=== PATIENT | female | born 1990 | race Two or more races ===

== ENCOUNTER 2020-03-11 17:42 | Emergency (ER) | payer OTHER ==
[~2020-03-11] VITALS: Ht 154.9 cm; Wt 56.2 kg
[2020-03-11 22:43] VITALS: BP 143/104
[2020-03-11 23:05] LABS: Urine Bacteria MOD /hpf (None Seen); Urine Blood 1+ /uL (Negative); Urine Mucus FEW (None Seen); Urine Specific Gravity 1.022 (1.001-1.035); Urine WBC 4 /hpf (0 - 5)
[2020-03-11 23:15] LABS: Amphetamine Screen, Urine POSITIVE (NEGATIVE); Barbiturate Scree,Urine NEGATIVE (NEGATIVE); Benzodiazephine Screen, Urine NEGATIVE (NEGATIVE); Cannabinoid Screen, Urine NEGATIVE (NEGATIVE); Cocaine Screen, Urine NEGATIVE (NEGATIVE); Opiate Scree,Urine NEGATIVE (NEGATIVE); Phencyclidine Screen, Urine NEGATIVE (NEGATIVE)
== END 2020-03-12 01:09 | disposition home or self-care (01) ==
LOC: ER 17:42
DX: U07.1 COVID-19 (principal); J18.9 Pneumonia, unspecified organism
CPT/HCPCS: 36415; 71045; 72040; 72125; 80307; 81001; 81025; 87426

== ENCOUNTER 2021-06-01 20:12 | Emergency (ER) | payer MEDICAID, OTHER ==
[~2021-06-01] VITALS: Ht 154.9 cm; Wt 61.2 kg
[2021-06-01 20:12] VITALS: BP 145/78
== END 2021-06-01 21:59 | disposition home or self-care (01) ==
LOC: ER 20:16
DX: S93.401A Sprain of unspecified ligament of right ankle, initial encounter (principal); X50.1XXA Overexertion from prolonged static or awkward postures, initial encounter; Y93.89 Activity, other specified; Y92.89 Other specified places as the place of occurrence of the external cause; Y99.8 Other external cause status
CPT/HCPCS: 73600

== ENCOUNTER 2022-02-07 16:55 | Emergency (ER) | payer MEDICAID, OTHER ==
[~2022-02-07] VITALS: Ht 154.9 cm; Wt 67.0 kg
[2022-02-07 17:07] VITALS: BP 150/97
[2022-02-09] MEDS ORDERED: ALBU108A5 IN (09:27)
[2022-02-09] MEDS ORDERED: PROM1SOL4 PO (09:27)
[2022-02-09] MEDS ORDERED: AZITTAB PO (09:27)
[2022-02-09] MEDS ORDERED: IBUP800T26 PO (09:27)
== END 2022-02-08 00:15 | disposition left against medical advice (07) ==
LOC: ER 16:55
DX: R05.9 Cough, unspecified (principal); R50.9 Fever, unspecified; M79.10 Myalgia, unspecified site; Z53.21 Procedure and treatment not carried out due to patient leaving prior to being seen by health care provider

== ENCOUNTER 2022-02-09 06:38 | Emergency (ER) | payer MEDICAID ==
[~2022-02-09] VITALS: Ht 154.9 cm; Wt 67.0 kg
[2022-02-09 09:11] VITALS: BP 106/73
[2022-02-09] MEDS ORDERED: IBUP800T26 PO (09:27)
[2022-02-09] MEDS ORDERED: AZITTAB PO (09:27)
[2022-02-09] MEDS ORDERED: PROM1SOL4 PO (09:27)
[2022-02-09] MEDS ORDERED: ALBU108A5 IN (09:27)
== END 2022-02-09 09:31 | disposition home or self-care (01) ==
LOC: ER 06:38
DX: J10.1 Influenza due to other identified influenza virus with other respiratory manifestations (principal); F15.90 Other stimulant use, unspecified, uncomplicated; Z20.822 Contact with and (suspected) exposure to COVID-19
CPT/HCPCS: 36415; 87426; 87804

== ENCOUNTER 2022-07-27 06:54 | Emergency (ER) | payer MEDICAID ==
[~2022-07-27] VITALS: Ht 154.9 cm; Wt 72.8 kg
[~2022-07-27 06:54] MED LIST: ALBU108A5 IN; AZITTAB PO; IBUP800T26 PO; PROM1SOL4 PO
[2022-07-27 08:04] VITALS: BP 129/88
[2022-07-27] MEDS ORDERED: ACETAMINOPHEN 500 MG TAB PO ONE (08:30)
[2022-07-27] MEDS ORDERED: AZITTAB PO (09:56)
[2022-07-27] MEDS ORDERED: BENZ1LOZ3 MT (09:56)
[2022-07-27] MEDS ORDERED: PROM1SOL4 PO (09:56)
[2022-07-27] MEDS ORDERED: ACET1CAP14 PO (09:56)
== END 2022-07-27 10:12 | disposition home or self-care (01) ==
LOC: ER 06:54
DX: J06.9 Acute upper respiratory infection, unspecified (principal); M54.9 Dorsalgia, unspecified; Z20.822 Contact with and (suspected) exposure to COVID-19
CPT/HCPCS: 36415; 71045; 87070; 87426; 87804; 87880